=== PATIENT | male | born 1950 | race Caucasian/White ===

== ENCOUNTER 2025-01-10 10:24 | Outpatient (CLI) | payer MEDICARE, OTHER ==
--- NOTE | 2025-01-10 12:30 | VASCULAR REPORT ---
CLINICAL HISTORY: Right calf pain TECHNIQUE: Color and duplex doppler imaging of the bilateral lower extremity veins was performed. Ves kamilah compression if possible was also performed. WID: COMPARISON: None FINDINGS: Right and left external iliac veins: Normal flow and phasicity. Right Lower Extremity: Right common femoral vein: Normal compressibility and flow. Right femoral vein: Normal compressibility and flow. Right popliteal vein: Normal compressibility and flow. Proximal calf veins are normally compressible. There is reflux in the right greater saphenous vein in the mid calf Left Lower Extremity: Left common femoral vein: Normal compressibility and flow. Left femoral vein: Normal compressibility and flow. Left popliteal vein: Normal compressibility and flow. Proximal calf veins are normally compressible. IMPRESSION: 1. NO SONOGRAPHIC EVIDENCE FOR DEEP VENOUS THROMBOSIS IN THE BILATERAL LOWER EXTREMITY VEINS. 2. Reflux in the right greater saphenous vein in the mid calf.
== END 2025-01-10 23:59 | disposition home or self-care (01) ==
LOC: VAS 10:24
PROVIDERS: ATTEND Family Medicine
DX: M79.661 Pain in right lower leg (principal)
CPT/HCPCS: 93970